=== PATIENT | male | born 1955 | race Caucasian/White ===

== ENCOUNTER 2023-07-06 08:40 | Day surgery (SDC) | payer OTHER, SELFPAY ==
[2023-07-06] MEDS: KETOROLAC OPHTH 0.5% 1 DROP EYE-RIGHT ×3 (09:00→09:10)
[2023-07-06] MEDS: TETRACAINE 0.5% OPHTH 1 DROP EYE-RIGHT ×2 (09:00→09:05)
[2023-07-06 09:13] VITALS: BP 132/96; PULSE 71; RESP 16; TEMP 36.7; O2SAT 95; BMI 35.7
[2023-07-06] MEDS: SODIUM CHLORIDE 0.9 % (FLUSH) 10 ML SYRINGE IVF (09:30)
--- NOTE | 2023-07-06 09:44 | SUR.PREOP ---
The eye drops brought by the patient (Ketorolac and Prednisolone) are examined and I have determined they are labeled by the patient's pharmacy for this patient as prescribed by the surgeon. The bottles are intact, recently obtained and appear to be correct.
[2023-07-06] MEDS: TETRACAINE 0.5% OPHTH 2 DROP EYE-RIGHT (10:12)
[2023-07-06] MEDS: BALANCED SALT IRRIG SOLN 15 ML EYE-RIGHT (10:16)
[2023-07-06 10:56] VITALS: BP 142/99; PULSE 66; RESP 16; TEMP 36.2; O2SAT 94
--- NOTE | 2023-07-06 10:57 | W.ANESCHARGE ---
Anesthesia Charges Start Date/Time Anesthesia Start Date: 07/06/23 Anesthesia Start Time: 10:09 Stop Date/Time Anesthesia Stop Date: 07/06/23 Anesthesia Stop Time: 10:56
--- NOTE | 2023-07-06 11:01 | W.PM.OPTPROC ---
Procedure Note Date of procedure: 07/06/23 Will [facility] bill your pro fee for this procedure?: Yes Procedure Description: SURGEON: Jodie Chavez MD PREOPERATIVE DIAGNOSIS: 1. Nuclear sclerotic cataract, right eye. 2. Miosis, right eye. POSTOPERATIVE DIAGNOSIS: 1. Nuclear sclerotic cataract, right eye. 2. Miosis, right eye. NAME OF OPERATION: Phacoemulsification of cataract with posterior chamber intraocular lens implantation in the right eye with pupilloplasty. ANESTHESIA: Topical. ESTIMATED BLOOD LOSS: Less than 2 cc. COMPLICATIONS: None. PATHOLOGY SPECIMEN: None. INDICATIONS: See consult note for details. The risks, benefits and alternatives of the procedure were explained to the patient, who elected to proceed and signed informed consent to do so. PROCEDURE: The patient was brought to the pre-holding area where the right eye was identified as the operative eye. I placed my initials above this eye. The patient received eye drops consisting of 0.5% tetracaine, 1% tropicamide, 10% phenylephrine, and 0.5% ketorolac. The patient was then brought to the operating room where the right eye was again identified as the operative eye. The eye was prepped with Betadine and draped in the usual sterile ophthalmic fashion. A #15 super-sharp blade was used to create a paracentesis site. 1% non-preserved intracameral lidocaine was injected into the anterior chamber. Endocoat was injected into the anterior chamber. A 2.4 mm keratome was used to create a three-plane self-sealing incision 1 mm anterior to the temporal limbus. A #15 super-sharp blade was used to create four additional paracentesis sites. Four Grieshaber iris hooks were placed in order to stretch the iris. A cystotome was used to create an anterior capsular leaflet. The Utrata forceps were used to extend this to form a continuous curvilinear capsulorrhexis. Hydrodissection was performed. The cataract was removed with phacoemulsification using the [id number] technique. The irrigation and aspiration tip was used to remove the remaining cortex. Healon was injected into the capsular bag. An MALA ZCB00 intraocular lens of 20.0 diopters was injected into the capsular bag. The four Grieshaber iris hooks were removed. The irrigation and aspiration tip was used to remove the remaining viscoelastic. Miostat was injected into the anterior chamber. Balanced salt solution on a cannula was used to hydrate the wound, and the wound was found to be watertight. The pupil was noted to be round. DISPOSITION: The patient was taken to the recovery room and discharged to home in stable condition. The patient was instructed to call me or go to the emergency department with any sudden change, including dramatic loss of vision, severe pain in the eye or eyebrow region, nausea, or vomiting. The patient will follow up in the clinic tomorrow morning.
--- NOTE | 2023-07-06 11:05 | W.ANESCHARGE ---
Anesthesia Charges Start Date/Time Anesthesia Start Date: 07/06/23 Anesthesia Start Time: 10:09 Stop Date/Time Anesthesia Stop Date: 07/06/23 Anesthesia Stop Time: 10:56
== END 2023-07-06 11:30 | disposition home or self-care (01) ==
LOC: OR 08:43
PROVIDERS: Visit Provider Ophthalmology
PROC: (CPT 66982; principal; 2023-07-06 09:00)
DX: H25.11 Age-related nuclear cataract, right eye (principal); H57.03 Miosis
CPT/HCPCS: 66982; 00142; A9270; J2250; J2405; J3010; V2632

== ENCOUNTER 2023-07-20 08:44 | Day surgery (SDC) | payer OTHER, SELFPAY ==
[2023-07-20] MEDS: KETOROLAC OPHTH 0.5% 1 DROP EYE-LEFT ×3 (09:05→09:15)
[2023-07-20] MEDS: TETRACAINE 0.5% OPHTH 1 DROP EYE-LEFT ×2 (09:05→09:10)
[2023-07-20] MEDS: SODIUM CHLORIDE 0.9 % (FLUSH) 10 ML SYRINGE IVF (09:14)
[2023-07-20 09:20] VITALS: BP 150/99; PULSE 64; RESP 16; TEMP 36.7; O2SAT 97
[2023-07-20 09:21] VITALS: BMI 35.7
--- NOTE | 2023-07-20 09:25 | SUR.PREOP ---
The eye drops brought by the patient (Ketorolac, Prednisolone, and Ofloxacin) are examined and I have determined they are labeled by the patient's pharmacy for this patient as prescribed by the surgeon. The bottles are intact, recently obtained and appear to be correct.
--- NOTE | 2023-07-20 11:03 | SUR.PREOP ---
Case cancelled per surgeon.
--- NOTE | 2023-07-20 11:07 | SUR.PREOP ---
patient discharged to home at 1050.
== END 2023-07-20 10:50 | disposition home or self-care (01) ==
LOC: OR 08:46
PROVIDERS: PCP Student in an Organized Health Care Education/Training Program; Visit Provider Ophthalmology
DX: Z53.9 Procedure and treatment not carried out, unspecified reason (principal); H25.12 Age-related nuclear cataract, left eye
CPT/HCPCS: A9270; J2250; J3010

== ENCOUNTER 2023-07-22 06:39 | Day surgery (SDC) | payer OTHER, SELFPAY ==
[2023-07-22] MEDS: TETRACAINE 0.5% OPHTH 1 DROP EYE-LEFT ×2 (07:05→07:10)
[2023-07-22] MEDS: KETOROLAC OPHTH 0.5% 1 DROP EYE-LEFT ×3 (07:05→07:15)
[2023-07-22 07:51] VITALS: BP 145/105; PULSE 61; RESP 16; TEMP 36.6; O2SAT 97
[2023-07-22 07:55] VITALS: BMI 35.7
[2023-07-22] MEDS: SODIUM CHLORIDE 0.9 % (FLUSH) 10 ML SYRINGE IVF (08:03)
[2023-07-22] MEDS: TETRACAINE 0.5% OPHTH 2 DROP EYE-LEFT (08:08)
[2023-07-22] MEDS: BALANCED SALT IRRIG SOLN 15 ML EYE-LEFT (08:12)
--- NOTE | 2023-07-22 08:48 | W.ANESCHARGE ---
Anesthesia Charges Start Date/Time Anesthesia Start Date: 07/22/23 Anesthesia Start Time: 08:03 Stop Date/Time Anesthesia Stop Date: 07/22/23 Anesthesia Stop Time: 08:47
[2023-07-22 09:00] VITALS: BP 126/90; PULSE 65; RESP 16; TEMP 36.4; O2SAT 98
[2023-07-22 09:15] VITALS: BP 138/92; PULSE 62; RESP 16; O2SAT 98
--- NOTE | 2023-07-22 09:20 | P.OPTPRC_ITS ---
Procedure Note Date of procedure: 07/22/23 Will [facility] bill your pro fee for this procedure?: Yes Procedure Description: SURGEON: Jodie Chavez MD PREOPERATIVE DIAGNOSIS: 1. Nuclear sclerotic cataract, left eye. 2. Miosis, left eye. POSTOPERATIVE DIAGNOSIS: 1. Nuclear sclerotic cataract, left eye. 2. Miosis, left eye. NAME OF OPERATION: Phacoemulsification of cataract with posterior chamber intraocular lens implantation in the left eye with pupilloplasty. ANESTHESIA: Topical. ESTIMATED BLOOD LOSS: Less than 2 cc. COMPLICATIONS: None. PATHOLOGY SPECIMEN: None. INDICATIONS: See consult note for details. The risks, benefits and alternatives of the procedure were explained to the patient, who elected to proceed and signed informed consent to do so. PROCEDURE: The patient was brought to the pre-holding area where the left eye was identified as the operative eye. I placed my initials above this eye. The patient received eye drops consisting of 0.5% tetracaine, 1% tropicamide, 10% phenylephrine, and 0.5% ketorolac. The patient was then brought to the operating room where the left eye was again identified as the operative eye. The eye was prepped with Betadine and draped in the usual sterile ophthalmic fashion. A #15 super-sharp blade was used to create a paracentesis site. 1% non-preserved intracameral lidocaine was injected into the anterior chamber. Endocoat was injected into the anterior chamber. A 2.4 mm keratome was used to create a three-plane self-sealing incision 1 mm anterior to the temporal limbus. A #15 super-sharp blade was used to create four additional paracentesis sites. Four Grieshaber iris hooks were placed in order to stretch the iris. A cystotome was used to create an anterior capsular leaflet. The Utrata forceps were used to extend this to form a continuous curvilinear capsulorrhexis. Hydrodissection was performed. The cataract was removed with phacoemulsification using the [id number] technique. The irrigation and aspiration tip was used to remove the remaining cortex. Healon was injected into the capsular bag. An MALA ZCB00 intraocular lens of 20.0 diopters was injected into the capsular bag. The four Grieshaber iris hooks were removed. The irrigation and aspiration tip was used to remove the remaining viscoelastic. Miostat was injected into the anterior chamber. Balanced salt solution on a cannula was used to hydrate the wound, and the wound was found to be watertight. The pupil was noted to be round. DISPOSITION: The patient was taken to the recovery room and discharged to home in stable condition. The patient was instructed to call me or go to the emerg ency department with any sudden change, including dramatic loss of vision, severe pain in the eye or eyebrow region, nausea, or vomiting. The patient will follow up in the clinic tomorrow morning.
== END 2023-07-22 09:22 | disposition home or self-care (01) ==
PROVIDERS: PCP Student in an Organized Health Care Education/Training Program; Visit Provider Ophthalmology
PROC: (CPT 66982; principal; 2023-07-22 08:00)
DX: H25.12 Age-related nuclear cataract, left eye (principal); H57.03 Miosis
CPT/HCPCS: 66982; 00142; A9270; J1100; J2250; J2405; J3010; V2632

== ENCOUNTER 2023-10-24 11:22 | Emergency (ER) | payer OTHER, SELFPAY ==
[2023-10-24] VITALS (16 sets, daily range): BP systolic 123–143; BP diastolic 75–94; PULSE 61–80; RESP 16; TEMP 36.5; O2SAT 92–98; BMI 36.6
[2023-10-24] MEDS: 0.9 % SODIUM CHLORIDE 1000 ml 1,000 ML IV (12:30)
[2023-10-24] MEDS: ONDANSETRON 2 MG/ML inj 4 MG IVP (12:35)
[2023-10-24 12:39] LABS: Basophils Absolute Auto 0.03 K/uL (0.00-0.30); Basophils Percent Auto 0.3 % (0.0-3.0); Eosinophils Absolute Auto 0.04 K/uL (0.00-0.50); Eosinophils Percent Auto 0.4 % (0.0-7.0); Hematocrit 43.9 % (37.0-53.0); Hemoglobin* 15.4 gm/dL (13.5-17.5); Immature Granulocytes Abs Auto 0.02 K/uL (0.00-0.30); Immature Granulocytes Pct Auto 0.2 %; Lymphocytes Percent Auto 9.4 % (20-44); Mean Corpuscular HGB Conc 35 gm/dL (32-36); Mean Corpuscular Hemoglobin 30 pg (26-34); Mean Corpuscular Volume 86 fL (80-100); Monocytes Percent Auto 7.5 % (0.0-11.0); Neutrophils Percent Auto 82.2 % (42.0-72.0); Platelet Count* 126 K/uL (140-440); RDW Coefficient of Variation % 12.3 % (11.5-15.5); Red Blood Count 5.11 m/uL (4.30-5.90); White Blood Count* 9.81 K/uL (4.50-11.00)
[2023-10-24 12:45] LABS: Slide Review Reflex No
[2023-10-24 12:53] LABS: Albumin* 4.8 g/dL (3.3-5.0); Chloride* 107 mmol/L (96-114); Sodium* 135 mmol/L (135-149)
[2023-10-24 12:54] LABS: Potassium* 4.1 mmol/L (3.6-5.1)
[2023-10-24 12:55] LABS: Bilirubin Direct* 0.4 mg/dL (0.0-0.5); Bilirubin Total* 1.2 mg/dL (0.1-1.5); Total Protein* 8.1 g/dL (6.0-8.3)
[2023-10-24 12:56] LABS: Alanine Aminotransferase* 59 U/L (4-50); Alkaline Phosphatase* 116 U/L (40-150); Aspartate Amino Transferase* 40 U/L (12-35); Creatinine* 0.7 mg/dL (0.5-1.5); Est. Creatinine Clearance* 75.44; Estimated Glomerular Filt Rate 99 ml/min; Lipase* 99 U/L (23-300)
[2023-10-24 12:57] LABS: Anion Gap 7 mEq/L (7-15); Blood Urea Nitrogen* 16 mg/dL (7-30); Carbon Dioxide* 21 mmol/L (20-32)
[2023-10-24 12:58] LABS: Calcium* 9.2 mg/dL (8.4-10.6); Glucose* 114 mg/dL (60-115)
--- NOTE | 2023-10-24 12:59 | ED_ITS ---
HPI - General Adult General Date Seen: 10/24/23 Chief complaint: Abdominal Pain Stated complaint: Possible infection on back, abdominal pain Time Seen by Provider: 10/24/23 11:28 Source: patient, family, RN notes reviewed and old records reviewed Mode of arrival: ambulatory Limitations: no limitations History of Present Illness HPI narrative: Patient is a 68-year-old male here with his for evaluation of some intestinal symptoms as well as a wound check of a cyst that was I and D a few weeks ago. This was done by Dr. Chin in clinic, has been changing the packing every 24 hours. She was concerned about possible infection ongoing. Mostly they are here however for evaluation of some abdominal pain associated with few episodes of non bloody diarrhea which started last evening. does note that he has had these kinds of symptoms a couple of times previously. He feels he got food poisoning once from some shrimp that tasted fine but retrospectively was maybe too old for him to have eaten. He will get some diffuse abdominal pain, a little nausea, no vomiting and a few episodes of diarrhea. Symptoms generally last about 24 hours and then resolved. He has not been seen for these symptoms. In general he really does not go to the doctor, has never had any colon cancer screening of any kind. No abdominal surgeries, he notes that he used to have a hernia which seems to have flattened out. No surgical intervention. He notes with a little bit of seeming frustration that his doctor who he saw once recently started him on something for cholesterol and is watching his blood pressure. He does not smoke, drinks occasionally. Related Data Home Medications ?Medication ?Instructions ?Recorded ?Confirmed No Known Home Medications 07/05/23 07/05/23 Allergies Allergy/AdvReac Type Severity Reaction Status Date / Time sulfamethoxazole Allergy Hives Verified 10/24/23 11:28 [From Bactrim] trimethoprim [From Bactrim] Allergy Hives Verified 10/24/23 11:28 Review of Systems Status of ROS: Reports: 10 or more systems reviewed and unremarkable except as noted in History and below PFSH PFS Social History Smoking Status: Former smoker Do you use any of these nicotine containing products: None How often do you have a drink containing alcohol: 2-3 times a week Alcohol type: hard liquor How many standard drinks containing alcohol do you have on a typical day: 1 or 2 How often do you have six or more drinks on one occasion: Never AUDIT-C Alcohol total score: 3 Non-prescribed substance use: denies use Caffeine: No Exam Narrative: Exam Narrative: Vital signs as noted above. In general, an alert, well-appearing patient. Head: Normocephalic, atraumatic. Eyes: Pupils are equal reactive. Extraocular movements are full. Conjunctivae are normal. ENT: Mucous membranes are moist. Throat is normal. Neck: Supple without lymphadenopathy. Heart: Regular rate and rhythm. No murmur or rub. Lungs: Clear bilaterally. No increased work of breathing, crackles or wheezes. Abdomen: Protuberant, soft. No significant tenderness, variable mild tenderness without rebound guarding or rigidity. Back: On the upper back there is a healing wound, packing in place. This was removed and replaced. There is some sandrita erythema around the incision, but no evidence of cellulitis. No purulent drainage. No swelling. Extremities: Well perfused. No edema. No calf tenderness. Pulses intact. Neurologic: Patient is alert and oriented to person and place. Speech is fluent. Face is symmetric. Moves all extremities equally. Affect: Normal. Skin: Warm and dry. Well perfused. Const: Vital Signs, click to edit/add: Vital Signs - 24 hr 10/24/23 11:28 10/24/23 12:42 10/24/23 12:43 Temperature 97.7 F Pulse Rate 67 64 Pulse Rate [Pulse Oximeter] 80 Respiratory Rate 16 Blood Pressure 123/78 Blood Pressure [Ri ght Upper Arm] 143/94 H Pulse Oximetry 97 [address] [facility] 10/24/23 12:50 10/24/23 13:00 10/24/23 13:02 Temperature Pulse Rate 65 65 71 Pulse Rate [Pulse Oximeter] Respiratory Rate Blood Pressure 126/82 Blood Pressure [Ri ght Upper Arm] Pulse Oximetry [address] [facility] 10/24/23 13:03 10/24/23 13:15 10/24/23 13:30 Temperature Pulse Rate 65 68 62 Pulse Rate [Pulse Oximeter] Respiratory Rate Blood Pressure Blood Pressure [Ri ght Upper Arm] Pulse Oximetry [address] [facility] 10/24/23 13:32 10/24/23 13:48 10/24/23 14:00 Temperature Pulse Rate 62 74 64 Pulse Rate [Pulse Oximeter] Respiratory Rate Blood Pressure 129/75 Blood Pressure [Ri ght Upper Arm] Pulse Oximetry 96 93 96 Oxygen Delivery Me thod 10/24/23 14:15 10/24/23 14:51 Temperature Pulse Rate 61 62 Pulse Rate [Pulse Oximeter] Respiratory Rate Blood Pressure Blood Pressure [Ri ght Upper Arm] Pulse Oximetry 98 97 Oxygen Delivery Me thod Documenting provider has reviewed patient's vital signs: yes Course Course ED Course: Patient presents with some episodic recurrent GI symptoms. Diagnostic considerations include a viral process, diverticulitis, colitis, pancreatitis, biliary colic, gastritis or peptic ulcer disease, irritable bowel, constipation, among others. Recommended that we check some routine labs, if these are all normal given his abdominal exam and intermittent chronicity of symptoms CT scan is likely not of significant benefit today. Did recommend discussion with primary doctor about colonoscopy. Wound on the back to me appears to be healing slowly without evidence of superimposed infection. Workup here is fairly unremarkable. White count is normal at 9.8, hemoglobin 15.4. Unremarkable diff, platelets very minimally low 126,000. Metabolic panel is normal, LFT show mild transaminase elevations of 40 and 59. Alk-phos bilirubin are normal. CRP is less than 0.5, lipase is 99 an urinalysis aside from seeming to be concentrated is negative. No ketones, no red cells no white cells. I reviewed all this with the patient in his . His abdominal exam is benign, he has had several episodes of this pain and I discussed with them that I do not have a clear diagnosis at this time. I do not think diverticulitis is entirely ruled out, but I do think that he is not going to have complicated diverticulitis, if anything this would be something that would resolve without needing antibiotics per current up-to-date guidelines. As such, I do not think CT scanning is likely to be particularly helpful today. Symptoms are not overly suggestive of gastritis, but this is something that could be considered if no other cause is found. I do not have any suspicion today of biliary colic or cholecystitis given exam and labs. I strongly recommended that he schedule a colonoscopy as he has never had 1, irrespective of the symptoms I think that it would be black for him to have at least 1 screening colonoscopy. Primary care follow-up recommended as well to further discuss abdominal symptoms. Return to the emergency department for severe worsening pain, vomiting, fever, or other significant changes. Vital Signs Vital signs: Initial Vital Signs Temperature 97.7 F 10/24/23 11:28 Temperature Source Temporal Artery Scan 10/24/23 11:28 Pulse Rate 80 10/24/23 11:28 Respiratory Rate 16 10/24/23 11:28 Blood Pressure 143/94 H 10/24/23 11:28 Blood Pressure Mean 110 H 10/24/23 11:28 Blood Pressure Position High-Fowlers 10/24/23 11:28 Pulse Oximetry 97 10/24/23 11:28 Oxygen Delivery Method Room Air 10/24/23 11:28 Vital Signs Temperature 97.7 F 10/24/23 11:28 Pulse Rate 80 10/24/23 11:28 Respiratory Rate 16 10/24/23 11:28 Blood Pressure 143/94 H 10/24/23 11:28 Pulse Oximetry 97 10/24/23 11:28 Oxygen Delivery Method Room Air 10/24/23 11:28 Temperature 97.7 F 10/24/23 11:28 Pulse Rate 62 10/24/23 14:51 Respiratory Rate 16 10/24/23 11:28 Blood Pressure 129/75 10/24/23 13:32 Pulse Oximetry 97 10/24/23 14:51 Oxygen Delivery Method Room Air 10/24/23 11:28 Medications Administered Medications: Discontinued Medications Generic Name Dose Route Start Last Admin Trade Name Freq PRN Reason Stop Dose Admin Sodium Chloride 1,000 mls @ 1,000 mls/hr 10/24/23 12:15 10/24/23 13:37 0.9 % Sodium Chloride 1000 Ml IV 10/24/23 13:14 Infused .Q1H NAVEED Infusion Ondansetron HCl 4 mg 10/24/23 12:06 10/24/23 12:35 Ondansetron 2 Mg/Ml Inj IVP 10/24/23 12:07 4 mg ONCE ONE Administration Medical Decision Making Lab Data Labs: Lab Results 10/24/23 10/24/23 Range/Units 12:25 13:44 WBC 9.81 (4.50-11.00) K/uL RBC 5.11 (4.30-5.90) m/uL Hgb 15.4 (13.5-17.5) gm/dL Hct 43.9 (37.0-53.0) % MCV 86 (80-100) fL MCH 30 (26-34) pg MCHC 35 (32-36) gm/dL RDW Coeff of Isaac 12.3 (11.5-15.5) % Plt Count 126 L (140-440) K/uL Neut % (Auto) 82.2 H (42.0-72.0) % Lymph % (Auto) 9.4 L (20-44) % [place] % (Auto) 7.5 (0.0-11.0) % Eos % (Auto) 0.4 (0.0-7.0) % Baso % (Auto) 0.3 (0.0-3.0) % Neut # (Auto) 8.10 H (1.7-7.0) K/uL Lymph # (Auto) 0.90 (0.90-2.90) K/uL [place] # (Auto) 0.70 (0.00-0.90) K/UL Eos # (Auto) 0.04 (0.00-0.50) K/uL Baso # (Auto) 0.03 (0.00-0.30) K/uL Abs Immat Gran (auto) 0.02 (0.00-0.30) K/uL Imm/Tot Granulo (auto) 0.2 % Sodium 135 (135-149) mmol/L Potassium 4.1 (3.6-5.1) mmol/L Chloride 107 (96-114) mmol/L Carbon Dioxide 21 (20-32) mmol/L Anion Gap 7 (7-15) mEq/L BUN 16 (7-30) mg/dL Creatinine 0.7 (0.5-1.5) mg/dL Estimated Creat Clear 75.44 Estimated GFR 99 ml/min Glucose 114 (60-115) mg/dL Calcium 9.2 (8.4-10.6) mg/dL Total Bilirubin 1.2 (0.1-1.5) mg/dL Direct Bilirubin 0.4 (0.0-0.5) mg/dL AST 40 H (12-35) U/L ALT 59 H (4-50) U/L Alkaline Phosphatase 116 (40-150) U/L C-Reactive Protein < 0.5 L (0.5-1.0) mg/dL Total Protein 8.1 (6.0-8.3) g/dL Albumin 4.8 (3.3-5.0) g/dL Lipase 99 (23-300) U/L Urine Color Dark yellow (Yellow) Urine Appearance Clear (Clear) Urine pH 5.5 (5.0-8.5) Ur Specific [place] >= 1.030 (1.000-1.030) Urine Protein Negative (Negative) Urine Glucose (UA) Negative (Negative) Urine Ketones Negative (Negative) Urine Blood Trace-lysed A (Negative) Urine Nitrite Negative (Negative) Urine Bilirubin Negative (Negative) Urine Urobilinogen 0.2 (0.2-1.0) Ur Leukocyte Esterase Negative (Negative) Urine RBC 0-2 (0-2) Urine WBC 0-2 (0-5) Ur Squamous Epith Cells Few (None-Few) Urine Bacteria Few A (None) Discharge Plan Discharge Clinical Impression: Abdominal pain, Diarrhea Patient Disposition: Home, Self-Care Condition: Improved Instructions: Acute Diarrhea (ED), Abdominal Pain (ED) Additional Instructions: I would recommend primary care follow-up to discuss her symptoms, would strongly recommend colonoscopy independent of any of your symptoms today. Follow-up with Dr. Chin if needed for further concerns regarding your cyst, as of today I do not see any signs of infection. Clear liquids to bland diet today, advance diet as able. Return to the emergency department for worsening pain, vomiting, fever, or other new symptoms. Prescriptions: No Action No Known Home Medications Follow Up/Referrals: Addis Laguerre MD [Primary Care Provider] - Stand Alone Forms: Portal Profes Info Instructions
[2023-10-24 13:03] LABS: C Reactive Protein* < 0.5 mg/dL (0.5-1.0)
[2023-10-24 13:56] LABS: Appearance Urine Clear (Clear); Bilirubin Urine Negative (Negative); Blood Urine Trace-lysed (Negative); Color Urine Dark yellow (Yellow); Glucose Urine Negative (Negative); Ketones Urine Negative (Negative); Leukocyte Esterase Urine Negative (Negative); Nitrite Urine Negative (Negative); Protein Urine Negative (Negative); Specific Gravity Urine >= 1.030 (1.000-1.030); Urobilinogen Urine 0.2 (0.2-1.0); pH Urine 5.5 (5.0-8.5)
[2023-10-24 14:52] LABS: Bacteria Urine Few; RBC Urine 0-2 (0-2); Squamous Epithelial Cell Urine Few (None-Few); WBC Urine 0-2 (0-5)
== END 2023-10-24 15:11 | disposition home or self-care (01) ==
PROVIDERS: Emergency Provider Emergency Medicine; PCP Student in an Organized Health Care Education/Training Program
DX: R10.9 Unspecified abdominal pain (principal); R19.7 Diarrhea, unspecified
CPT/HCPCS: 36415; 80048; 80076; 81001; 83690; 85025; 86140; 87086; 96374; 99283; 99284; J2405; J7030